=== PATIENT | female | born 1940 | race Caucasian/White ===

== ENCOUNTER 2016-07-01 20:43 | Emergency (ER) | payer MEDICARE ==
[~2016-07-01] VITALS: Ht 160 cm; Wt 92.3 kg
[~2016-07-01 20:43] MED LIST: ACET-171 PO; BROM3DRO LEFT_EYE; CYAN10008 PO; DPAS20025 PO; FERR325T39 PO; FLUT16SP NOSTRIL; LEVO100T6 PO; LOSA100T29 PO; METF500T4 PO; MIRT15TA6 PO; OMEP20CA11 PO; SIMV20TA4 PO
[2016-07-01 20:48] VITALS: BP 163/71; PULSE 99; RESP 19; O2SAT 96
--- NOTE | 2016-07-01 22:05 | ED.REPORT ---
HPI- Female Date of Service Jul 01, 2016 ED Provider: Alexandr Alonso MD A 75 year old female with a history of cancer, HTN, diabetes, arthritis, and cataracts presents to the ED complaining of hematuria onset tonight. The patient has never experienced this before. She denies any fever, back pain, flank pain, nausea or vomiting. She reports no bladder infection in the past few weeks. She has been taking amoxicillin for the last 5 days to treat recent illness, taking 2 tablets per day, with 3 days to go. The patient has never visited a urologist before. She regularly takes aspirin but is unsure if she is currently taking any anticoagulant medications. She has no other complaints and states that she would not have come in except for the blood in her urine. Dr. Erickson is her PCP. Although the RN notes indicate abdominal pain, patient denies any abdominal pain to me. Nursing Notes Stated Complaint: VAGINAL DISCHARGE, FREQUENT URINATION Chief Complaint: Female Abdominal Pain Nursing Notes Reviewed: Yes (Premisetech, GTX Messagings not reconciled) Allergies: Coded Allergies: TAPE (Verified Adverse Reaction, Unknown, PULLS OFF SKIN, 07/01/16) paper tape preferred, adverse reaction to plastic tape aspirin (Verified Adverse Reaction, Unknown, GI UPSET, 07/01/16) Scheduled Bromfenac Sodium (Prolensa) 1.6 Ml Drops 1 DROP LEFT_EYE BID Cyanocobalamin (Vitamin B-12) (Vitamin B-12) 1,000 Mcg Tablet Unknown Dose PO DAILY Dipyridamole/Aspirin 200-25 mg (Aggrenox 200-25 mg) 1 Each Capsule 1 CAPSULE PO BID Ferrous Sulfate (Iron) 325 Mg Tablet Unknown Dose PO QAM Fluticasone Propionate (Fluticasone Propionate Nasal) 16 Gm [place].susp 1 SPRAY NOSTRIL DAILY Levofloxacin (Levofloxacin) 500 Mg Tablet 500 MG PO DAILY Levothyroxine (Levothyroxine) 100 Mcg Tablet 100 MCG PO DAILY Losartan Potassium (Losartan Potassium) 100 Mg Tablet 100 MG PO QAM Metformin (Metformin) 500 Mg Tablet 750 MG PO BIDWM Mirtazapine (Mirtazapine) 15 Mg Tablet 15 MG PO DAILY Omeprazole (Omeprazole) 20 Mg Capsule. 20 MG PO QAM Simvastatin (Simvastatin) 20 Mg Tablet 20 MG PO DAILYWD Scheduled PRN Acetaminophen (Acetaminophen) 500 Mg Tablet 500 MG PO HS PRN PRN For Headache General Time Seen by MD: 22:02 Chief Complaint Other (Hematuria) Hx Obtained From: Patient Arrived By: Walk-in Sudden in Onset?: Yes Onset Occurred: 1 - 4 hours ago Recent Healthcare: No recent doctor visit Similar Sx Previous: No Past Medical History Past Medical History Metformin for DM Breast cancer (remission) and colon cancer (s/p partial colectomy) Hx Sepsis arthritis Reports: Cancer, Diabetes mellitus, Hypertension Past Surgical History partial colectomy due to colon cancer Smoking History Former Smoker, Unknown if Ever Smoker Social History Other Social History: Good social support, , Local resident Ambulatory Status Independent Review of Systems Review of Systems Note: Denies back or flank pain. Constitutional: Denies: Fever GI: Denies: Nausea, Vomiting Female: Reports: Hematuria Complete sys rev & neg: except as marked. Physical Exam Initial Vital Signs Vital Signs (First) Date Time Temp Pulse Resp B/P Pulse Ox O2 Delivery O2 Flow Rate FiO2 07/01/16 20:48 36.0 99 19 163/71 96 07/01/16 23:01 Room Air Initial VS: Reviewed Female Genitourinary: Atraumatic General/Constitutional: Awake, Alert Respiratory / Chest: Atraumatic, Breath sounds NL, Breath sounds = bilat, No respiratory distress, No rales, No rhonchi, No wheezing Cardiovascular: Heart rate NL, Regular rhythm, Heart sounds NL, No gallop, No murmurs, No rubs Abdomen: Atraumatic, Soft, Non-tender, No guarding, No rebound Back: Atraumatic, Full range of motion Skin: Atraumatic, Color NL, No rash, Warm, Dry Head / Eyes: Atraumatic, Normocephalic, PERRL, EOMI ENT: Atraumatic, Mucous membranes moist Neck: Atraumatic, Full range of motion Upper Extremity / MS: Atraumatic, Full range of motion Wrist / Hand: Atraumatic, Full range of motion Lower Extremity / Pelvis / MS: Atraumatic, Full range of motion Neurologic: Oriented X3, Speech NL Interpretation & Diagnostics Lab Results Interpretation Test 07/01/16 21:55 Urine Color Dark yellow (YELLOW) Urine Appearance Cloudy (CLEAR,HAZY) Urine pH 5.0 (5.0-8.0) Urine Specific [place] 1.025 (1.003-1.035) Urine Protein 30mg/dL (NEG,TRACE) Urine Glucose (UA) Negativemg/dL (NEGATIVE) Urine Ketones Negativemg/dL (NEGATIVE) Urine Occult Blood Large (NEGATIVE) Urine Nitrite Negative (NEGATIVE) Urine Bilirubin Negative (NEGATIVE) Urine Urobilinogen Normalmg/dL (NORMAL) Urine Leukocyte Esterase Moderate (NEGATIVE) Urine RBC Packed/hpf (0-2) Urine WBC >50/hpf (0-5) Urine Epithelial Cells Occasional/hpf (NONE-MOD) Urine Crystals None seen (NONE SEEN) Urine Bacteria Few/hpf (NONE-FEW) Urine Hyaline Casts None/lpf (NONE) Urine Granular Casts None seen (NONE SEEN) Urine Waxy Casts None seen (NONE SEEN) Urine Red Blood Cell Casts None seen (NONE SEEN) Urine White Blood Cell Casts None seen (NONE SEEN) Urine Mucus None seen (None Seen) Urine Trichomonas None seen (NONE SEEN) Urine Yeast None (NONE SEEN) Urinalysis Comment None Urine Culture Reflexed Indicated Lab Results Interpretation: UA markedly positive for infection, culture pending Re-Eval/Medical Decision Med Decision/Clinical Course This is a 75-year-old female noted some hematuria today and therefore came to the ED. She is on an unknown antibiotic, possibly amoxicillin, that she is taking for bronchitis. She still has a cough, denies abdominal pain, denies overt dysuria, denies recent UTI or pyelonephritis, and has no additional complaints. She is on Aggrenox. TIA history, but is not on any other blood thinners-at least according the records that I can access as the patient does not know her medication list what she takes or Y Since clinically well-appearing in no distress. Vitals are normal. Abdomen is soft nontender. Bladder scan shows an only 50 mL, with no evidence of obstruction. Urinalysis markedly positive for multiple markers of infection, suggesting a UTI as a source of the hematuria. Given the patient is having this occur while on a beta-lactam, at this point the plan will be to switch to a fluoroquinolone-the patient was started on levofloxacin. She is not toxic, she is not febrile, she has no nausea or vomiting-she has no clinical findings to indicate a need for admission or clinical signs of pyelonephritis. She is advised to stop the amoxicillin. Routine precautions reviewed. The need to follow-up with a recheck through her primary care physician was reviewed. Return precautions were reviewed. She is discharged in good condition. Source of Hx: Old records Differential Diagnosis: Positive: Urinary tract infection, Negative: Benzie-Calderon contraction, Discomfort of , Ectopic preg, ruptured, Ectopic , Intrauterine , Molar , Pyelonephritis, acute Counseled Regarding: Diagnosis, Lab results, Need for follow-up, When/why to return to ED Discharge & Departure Impression: Primary Impression: UTI (urinary tract infection) Urinary tract infection type: acute cystitis Hematuria presence: with hematuria Qualified Code: N30.01 - Acute cystitis with hematuria Disposition: Home Discharge Condition Condition: Improved Additional Instructions: 1. Your urine tests indicate that the blood urine is from a urinary tract infection. 2. Stop the antibiotic you are currently taking for your respiratory infection. 3. Instead take the antibiotics levofloxacin 500 mg once a day for the next 7 days. Your next dose should be tomorrow, as you have received a dose tonight in the emergency department. 4. Symptoms and blood should resolve fairly rapidly over the next several days. 5. You should follow-up in the next [address] Erickson for recheck of your urine. We have sent a "urine culture" today, the will take a couple of days for final results. We will call you if it suggests that we should change the antibiotic again, and you can call us at any time for an update on the results at [phone]. 6. Return if new or worsening symptoms Referrals: Mackenzie Erickson MD (PCP) [employer] Portions of this note were transcribed by Pradeep Morales. I, Dr. Alonso personally performed the history, physical exam and medical decision-making; I reviewed and confirmed the accuracy of the information in the transcribed note. Signed by: Marvel Wolfe, 07/02/2016and 0057. copies to: Mackenzie Erickson MD, Matthew F MD Jul 01, 2016 22:05 Pradeep Morales Jul 01, 2016 22:20
[2016-07-01 22:20] LABS: APPEARANCE,URINE CLOUDY (CLEAR,HAZY); COLOR,URINE DARK YELLOW (YELLOW); OCCULT BLOOD,URINE LARGE (NEGATIVE); UROBILINOGEN,URINE NORMAL (NORMAL)
[2016-07-01] MEDS ORDERED: levoFLOXacin 500 mg Tablet PO ONE (22:30)
[2016-07-01] MEDS ORDERED: LEVO500T79 PO (22:51)
[2016-07-01 23:01] VITALS: BP 151/69; PULSE 90; RESP 18; O2SAT 97
== END 2016-07-01 23:00 | disposition home or self-care (01) ==
LOC: SED 20:43
DX: N30.01 Acute cystitis with hematuria (principal); I10 Essential (primary) hypertension; E11.9 Type 2 diabetes mellitus without complications; C18.9 Malignant neoplasm of colon, unspecified; C50.919 Malignant neoplasm of unspecified site of unspecified female breast; M19.90 Unspecified osteoarthritis, unspecified site; Z79.84 Long term (current) use of oral hypoglycemic drugs; Z87.891 Personal history of nicotine dependence; Z88.8 Allergy status to other drugs, medicaments and biological substances; Z91.048 Other nonmedicinal substance allergy status